=== PATIENT | female | born 1990 | race African-American/Black ===

== ENCOUNTER 2017-10-26 19:26 | Outpatient (CLI) | payer OTHER ==
[2017-10-26] MEDS ORDERED: LACTATED RINGERS 500 ML IV ONE (19:44)
[2017-10-26] MEDS ORDERED: LACTATED RINGERS 1,000 ML IV SCH (20:00)
[2017-10-26] MEDS ORDERED: TYLENOL PO ONE ×2 (20:02→20:49)
[2017-10-26 20:13] LABS: Bacteria,Urine 3+ /HPF (Negative); Bilirubin,Urine NEG (Negative); Blood,Urine LG (Negative); Color,Urine Yellow (Yellow); Protein,Urine <15 mg/dL mg/dL (Negative); Urobilinogen,Urine < 2.0 mg/dL (<2.0)
[2017-10-28 03:15] VITALS: BP 108/59
== END 2017-10-26 22:23 | disposition home or self-care (01) ==
LOC: TRG 19:26
PROVIDERS: ATTEND Obstetrics & Gynecology
DX: O62.8 Other abnormalities of forces of labor (principal); O46.93 Antepartum hemorrhage, unspecified, third trimester; O26.893 Other specified pregnancy related conditions, third trimester; M54.9 Dorsalgia, unspecified; Z3A.35 35 weeks gestation of pregnancy
CPT/HCPCS: 81001; J7120

== ENCOUNTER 2017-10-27 18:15 | Inpatient (IN) | payer OTHER ==
[2017-10-27] MEDS ORDERED: LACTATED RINGERS 500 ML IV ONE (19:32)
--- NOTE | 2017-10-27 20:43 | History and Physical Report ---
History of Present Illness Date of examination: 10/27/17 Date of admission: 10/27/17 18:16 Chief complaint: SROM History of present illness: Pt is a 27yo female EDC 11/24/17; EGA 36 0/7 weeks presents to L&D from [facility] complaining of SROM clear fluid @ followed by irregular contractions. She received care in [facility] but records are not available and GBS is unknown. Past History Past Medical History: no pertinent history Past Surgical History: no surgical history Family/Genetic History: none Social history: no significant social history, - Obstetrical History Expected Date of Delivery: 11/24/17 Actual Gestation: 36 Week(s) 1 Day(s) : 1 Medications and Allergies Allergies Allergy/AdvReac Type Severity Reaction Status Date / Time No Known Allergies Allergy Unverified 10/26/17 19:42 Review of Systems All systems: negative - Vital Signs Vital signs: Vital Signs Pulse BP 90 114/73 10/27/17 18:40 10/27/17 18:40 Temp Pulse Resp BP Pulse Ox 98 F 84 20 106/66 98 10/27/17 20:22 10/27/17 20:33 10/27/17 20:22 10/27/17 19:50 10/27/17 20:33 - Physical Exam Breasts: Positive: deferred Cardiovascular: Regular rate Lungs: Positive: Clear to auscultation Abdomen: Positive: normal appearance Genitourinary (Female): Positive: normal external genitalia Vagina: Positive: normal moisture Uterus: Positive: enlarged Extremities: Positive: normal - Obstetrical FHR: category 1 Uterine Contraction Monitor Mode: External Cervical Dilatation: 4 Cervical Effacement Percentage: 90 station: 0 Uterine Contraction Pattern: Irregular Uterine Tone Measurement Phase: Contraction Uterine Contraction Intensity: Moderate Results Result Diagrams: 10/27/17 22:05 All other labs normal. Assessment and Plan - Patient Problems (1) 36 weeks gestation of Onset Date: 10/27/17 Current Visit: Yes Status: Acute Plan to address problem: A: IUP @ 36 0/7 weeks PPROM - stable Unknown GBS P: Admit to L&D for pitocin augmentation of labor IV Antibiotics (2) premature rupture of membranes (PPROM) with onset of labor within 24 hours of rupture in third trimester, antepartum Onset Date: 10/27/17 Current Visit: Yes Status: Acute
[2017-10-27] MEDS ORDERED: STADOL IV PRN (20:47)
[2017-10-27] MEDS ORDERED: ZOFRAN IV PRN (20:47)
[2017-10-27] MEDS ORDERED: PHENERGAN PO PRN (20:47)
[2017-10-27] MEDS ORDERED: BRETHINE SUB-Q PRN (20:47)
[2017-10-27] MEDS ORDERED: BRETHINE IVP PRN (20:47)
[2017-10-27] MEDS ORDERED: XYLOCAINE 2% INFILTRATI ONE (20:47)
[2017-10-27] MEDS ORDERED: NARCAN 0.4 MG/1 ML IV PRN (20:47)
[2017-10-27] MEDS ORDERED: SUBLIMAZE IV PRN (20:47)
[2017-10-27] MEDS ORDERED: POLYCILLIN/NS 2 GM/100 ML 2 GM/100 ML BAG IV ONE (21:00)
[2017-10-27] MEDS ORDERED: PITOCin/NS 20 UNIT/1000ML DRIP 20 UNITS/1,000 ML BAG IV SCH (21:00)
[2017-10-27] MEDS ORDERED: PITOCin/NS 30 UNIT/500ML 30 UNITS/500 ML BAG IV SCH ×2 (21:00)
[2017-10-27] MEDS ORDERED: MINERAL OIL PO PRN (22:00)
[2017-10-27] MEDS: LACTATED RINGERS 1,000 ML IV SCH ×2 (22:11→23:41)
[2017-10-27 22:27] LABS: Hematocrit 39.2 % (30.3-42.9); Hemoglobin 12.8 gm/dl (10.1-14.3); Mean Corpuscular HGB Conc 33 % (30-34); Mean Corpuscular Hemoglobin 31 pg (28-32); Mean Corpuscular Volume 93 fl (79-97); Platelet Count 289 K/mm3 (140-440)
[2017-10-27] MEDS ORDERED: NARCAN 2 MG/2 ML IV PRN (22:55)
[2017-10-27] MEDS ORDERED: fentaNYL-BUPIV 2 MCG/ML-0.125% 200 MCG/100 ML BAG EPIDURAL SCH (23:00)
[2017-10-28] MEDS ORDERED: AMPICILLIN/NS 1 GM/50 ML 1 GM/50 ML BAG IV SCH (01:00)
[2017-10-28] MEDS: LACTATED RINGERS 1,000 ML IV SCH (02:28)
--- NOTE | 2017-10-28 03:36 | Procedure Note ---
OB Delivery Note - Delivery Date of Delivery: 10/28/17 Surgeon: LAY PÉREZ Estimated blood loss: 200cc - Vaginal Delivery presentation: vertex Delivery position: OA Intrapartum events: labor-<37 weeks, febrile- temp >100.3, PROM->1hr before delivery Delivery induction: none Delivery augmentation: pitocin Delivery monitor: external FHT, external uterine Route of delivery: Delivery placenta: spontaneous Delivery cord: 3 umbilical vessels Episiotomy: none Delivery laceration: 2nd degree (perineal) Delivery repair: vicryl Anesthesia: epidural Delivery comments: delivered OA and placed on Mom's chest for [id number] bonding and delayed cord clamping, cut by Dad - A at 1 minute: 8 at 5 minutes: 8 Infant Gender: Male ([id number])
[2017-10-28] MEDS ORDERED: PHENERGAN PO PRN (03:37)
[2017-10-28] MEDS ORDERED: BENADRYL PO PRN (03:37)
[2017-10-28] MEDS ORDERED: LANSINOH TP PRN (03:37)
[2017-10-28] MEDS ORDERED: DULCOLAX PR PRN (03:37)
[2017-10-28] MEDS ORDERED: ZOFRAN IV PRN (03:37)
[2017-10-28] MEDS ORDERED: TYLENOL PO PRN (03:37)
[2017-10-28] MEDS ORDERED: PHENERGAN PR PRN (03:37)
[2017-10-28] MEDS ORDERED: MOTRIN PO SCH (04:00)
[2017-10-28] MEDS ORDERED: SODIUM CHLORIDE FLUSH SYRINGE 10 ML IV NR (04:00)
[2017-10-28] MEDS ORDERED: PITOCin/NS 20 UNIT/1000ML DRIP 20 UNITS/1,000 ML BAG IV SCH (04:00)
[2017-10-28] MEDS ORDERED: DERMOPLAST TP PRN (05:43)
[2017-10-28] MEDS: TUCKS PAD TP PRN (06:07)
[2017-10-28] MEDS: MOTRIN PO SCH ×2 (06:08→13:45)
[2017-10-28] MEDS: COLACE PO SCH ×2 (13:45→22:08)
[2017-10-28] MEDS: FEOSOL PO SCH ×2 (13:45→22:08)
[2017-10-28] MEDS: NORCO 5/325 PO PRN (13:45)
[2017-10-28] MEDS: PRENATAL VITAMIN PO SCH (13:45)
[2017-10-28 17:29] LABS: Hematocrit 32.4 % (30.3-42.9); Hemoglobin 10.7 gm/dl (10.1-14.3)
[2017-10-28] MEDS ORDERED: MILK OF MAGNESIA PO PRN (22:00)
[2017-10-29] MEDS: MOTRIN PO SCH ×2 (00:35→19:52)
[2017-10-29] MEDS ORDERED: BOOSTRIX IM ONE (06:00)
[2017-10-29] MEDS: FEOSOL PO SCH ×2 (09:25→21:22)
[2017-10-29] MEDS: COLACE PO SCH ×2 (09:25→21:22)
[2017-10-29] MEDS: NORCO 5/325 PO PRN ×2 (09:25→21:22)
[2017-10-29] MEDS: PRENATAL VITAMIN PO SCH (09:25)
[2017-10-29] MEDS ORDERED: M-M-R II VACCINE SUB-Q ONE (10:00)
--- NOTE | 2017-10-29 14:10 | Progress Note ---
Assessment and Plan A: day 1 S/P spontaneous vaginal delivery. Anemia. P: Supplement with iron. Encouraged ambulation. Hydrocortisone cream for rash. Subjective - Subjective Date of service: 10/29/17 Principal diagnosis: day 1 S/P spontaneous vaginal delivery Interval history: day 1 S/P spontaneous vaginal delivery. Patient is doing well. Patient is voiding without difficulty and ambulating well. She is tolerating a regular diet without nausea or vomiting. She is . Patient denies heavy bleeding. Patient denies headache, chest pain, shortness of breath, cough, abdominal pain , leg pain, heavy vaginal bleeding, or symptoms of depression. Patient reports rash on arms and legs for about a week, mildly itchy. Patient reports: appetite normal, voiding normally, pain well controlled, flatus , ambulating normally Arnold: doing well Objective - Vital Signs Latest vital signs: Vital Signs Temp Pulse Resp BP 10/29/17 06:40 98.6 F 69 18 114/78 10/29/17 04:00 98.7 F 77 18 117/72 10/29/17 01:35 16 10/29/17 00:35 18 10/29/17 00:00 98.7 F 74 18 113/69 10/28/17 19:30 98.6 F 71 18 102/64 10/28/17 16:20 98.2 F 74 20 98/59 Intake and Output 10/28/17 10/29/17 10/29/17 23:59 07:59 15:59 Intake Total 420 300 Balance 420 300 Intake: Oral 120 Intake, Free Water 300 300 Other: Total, Intake Amount 120 # Voids Void 1 - Exam Abdomen: Present: normal appearance, soft. Absent: distention, tenderness, guarding, rigidity Uterus: Present: normal, firm, fundal height below umbilicus. Absent: bogginess , tenderness Extremities: Present: normal. Absent: tenderness, edema
[2017-10-29] MEDS ORDERED: HYDROCORTISONE CR TP PRN (15:02)
[2017-10-29] MEDS: TUCKS PAD TP PRN (16:00)
[2017-10-30] MEDS: MOTRIN PO SCH (05:47)
[2017-10-30] MEDS: COLACE PO SCH (11:10)
[2017-10-30] MEDS: FEOSOL PO SCH (11:10)
[2017-10-30] MEDS: PRENATAL VITAMIN PO SCH (11:10)
[2017-10-30] MEDS: NORCO 5/325 PO PRN ×2 (11:30→17:15)
[2017-10-30 17:55] VITALS: BP 110/71
--- NOTE | 2017-10-30 18:05 | Progress Note ---
Assessment and Plan A: day 2 S/P . Anemia. P: Discharge patient home today. The following Rx were called to [facility] for patient : Motrin 800 mg, #30, 1 po every 8 hours prn, 0 RF; Colace 100 mg, #60, 1 po BID , 1 RF; Ferrous Sulfate 325 mg, #60, 1 po BID, 1 RF. discharge instructions and warning signs discussed in detail with patient. Advised pt. to avoid IC, avoid lifting and heavy housework for 6 weeks. Advised pt. to follow up with her primary OB provider in 6 weeks. Pt. voiced understanding of all instructions. Subjective - Subjective Date of service: 10/30/17 Principal diagnosis: day 2 S/P spontaneous vaginal delivery Interval history: day 2 S/P spontaneous vaginal delivery. Patient is doing well. Patient desires discharge today. Patient is voiding without difficulty and ambulating well. She is tolerating a regular diet without nausea or vomiting. She is . Patient denies heavy bleeding or clots. Patient denies headache, chest pain, shortness of breath, dizziness, cough, abdominal pain, leg pain, heavy vaginal bleeding, or symptoms of depression. Patient reports: appetite normal, voiding normally, pain well controlled, ambulating normally : doing well Objective - Vital Signs Latest vital signs: Vital Signs Temp Pulse Resp BP 10/30/17 15:55 98.0 F 77 18 110/71 10/30/17 08:18 97.5 F L 73 18 107/70 10/30/17 00:00 98.7 F 72 18 103/64 Intake and Output 10/30/17 10/30/17 10/30/17 07:59 15:59 23:59 Intake Total 300 Balance 300 Intake: Intake, Free Water 300 - Exam Cardiovascular: Present: Regular rate, Normal S1, Normal S2 Lungs: Present: Clear to auscultation Abdomen: Present: normal appearance, soft. Absent: distention, tenderness, guarding, rigidity Uterus: Present: normal, firm, fundal height below umbilicus. Absent: bogginess , tenderness Extremities: Present: normal
--- NOTE | 2017-10-30 19:03 | Discharge Summary ---
Providers - Providers Date of Admission: 10/27/17 18:16 Date of discharge: 10/30/17 Attending physician: LAY PÉREZ None Primary care physician: LAY PÉREZ Hospitalization Reason for admission: active labor Delivery: Episiotomy: none Laceration: 2nd degree Other procedures: none complications: none Discharge diagnosis: IUP at term delivered baby: male Pertinent studies: Labs Hospital course: Normal hospital course. Condition at discharge: Good Disposition: DC-01 TO HOME OR SELFCARE - Discharge Diagnoses (1) Term delivered Status: Acute Plan - Discharge Medications Prescriptions: Ferrous Sulfate [Feosol 325 MG tab] 325 mg PO BID #60 tablet Ibuprofen [Motrin] 800 mg PO Q8HR PRN #30 tablet PRN Reason: Pain, Moderate (4-6) Vit Calc,Iron,Folic [ Vitamins] 1 each PO DAILY #30 tablet - Provider Discharge Summary Activity: routine, no sex for 6 weeks, no heavy lifting 4 weeks, no strenuous exercise Diet: routine Instructions: routine Additional instructions: Call your doctor immediately for: * Fever > 100.5 * Heavy vaginal bleeding ( >1 pad per hour) * Severe persistent headache * Shortness of breath * Reddened, hot, painful area to leg or breast * Drainage or odor from incision. * Keep incision clean and dry at all times and follow doctor's instructions regarding bathing/showering - Follow up plan Follow up: LAY PÉREZ MD [Primary Care Provider] - 6 Weeks Forms: [facility] Discharge Summary
== END 2017-10-30 19:48 | disposition home or self-care (01) | DRG 775 ==
LOC: TRG 18:15 → LD 18:16 → TRG 18:33 → LD 19:17 → OB 10-28 05:36
PROVIDERS: ADMIT Obstetrics & Gynecology; ATTEND Obstetrics & Gynecology
PROC: 10E0XZZ Delivery of Products of Conception, External Approach (ICD-10-PCS; principal; 2017-10-28)
PROC: 0KQM0ZZ Repair Perineum Muscle, Open Approach (ICD-10-PCS; 2017-10-28)
PROC: 3E0R3BZ Introduction of Anesthetic Agent into Spinal Canal, Percutaneous Approach (ICD-10-PCS; 2017-10-28)
PROC: 00HU33Z Insertion of Infusion Device into Spinal Canal, Percutaneous Approach (ICD-10-PCS; 2017-10-28)
PROC: 3E0234Z Introduction of Serum, Toxoid and Vaccine into Muscle, Percutaneous Approach (ICD-10-PCS; 2017-10-29)
DX: O42.013 Preterm premature rupture of membranes, onset of labor within 24 hours of rupture, third trimester (principal); Z3A.36 36 weeks gestation of pregnancy; Z37.0 Single live birth; O70.1 Second degree perineal laceration during delivery; O90.81 Anemia of the puerperium; D64.9 Anemia, unspecified; Z23 Encounter for immunization
CPT/HCPCS: 36415; 85014; 85018; 85027; 86592; 86706; 86762; 86850; 86900; 86901; 87806; A6250; J0290; J2590; J7120